=== PATIENT | female | born 1940 | race Caucasian/White ===

== ENCOUNTER 2021-09-04 21:13 | Inpatient (IN) | payer MEDICARE ==
[2021-09-04] MEDS ORDERED: hydrALAZINE 20 MG/ML VIAL ONE (21:42)
[2021-09-04] MEDS ORDERED: Nitroglycerin 2% Ointment 1 INCH/1 GM Packet ONE (21:42)
[2021-09-04] MEDS ORDERED: Nitroglycerin 0.4 MG TAB 1 EACH ONE (21:42)
[2021-09-04 21:47] LABS: #Eosinphils 0.5 thou/uL (0.0-0.7); #Lymphocytes 1.9 thou/uL (1.20-3.40); #Monocytes 0.8 thou/uL (0.11-0.59); %Basophils 0.1 % (0.0-1.0); %Eosinophils 3.1 % (0.0-10.0); %Lymphocytes 11.5 % (21.0-51.0); %Monocytes 4.9 % (0.0-10.0); %Neutrophils 80.4 % (42.0-75.0); Hemoglobin 11.6 g/dL (12.0-16.0); Mean Corpuscular HGB CONC 32.3 g/dL (32.0-36.0); Mean Corpuscular Hemoglobin 31.9 pg (27.0-31.0); Mean Corpuscular Volume 98.6 fL (78.0-98.0); Mean Platelet Volume 8.9 fL (7.4-10.4); Platelet Count 243 thou/uL (130-400); RBC Distribution Width 14.4 % (11.5-14.5); Red Blood Cell (RBC) Count 3.65 mill/uL (4.20-5.40); White Blood Cell (WBC) Count 16.1 thou/uL (4.8-10.8)
[2021-09-04 22:10] LABS: ALT (SGPT) 13 U/L (8-55); AST (SGOT) 15 U/L (5-34); Albumin 4.4 g/dL (3.4-4.8); Alkaline Phosphatase 109 U/L (40-110); Anion Gap 20 mmol/L (10-20); BUN (Urea Nitrogen) 59 mg/dL (9.8-20.1); Bilirubin, Total 0.5 mg/dL (0.2-1.2); Calc. Creatinine Clearance 0 mL/min (70-130); Calcium 9.7 mg/dL (7.8-10.44); Carbon Dioxide 21 mmol/L (23-31); Chloride 104 mmol/L (98-107); Globulin 3.6 g/dL (2.4-3.5); Glucose 171 mg/dL (83-110); Potassium 4.7 mmol/L (3.5-5.1); Sodium 140 mmol/L (136-145)
[2021-09-04 22:30] LABS: CKMB 1.9 ng/mL (0-6.6)
[2021-09-05] MEDS ORDERED: Ondansetron ODT 4 MG TAB PO PRN (00:09)
[2021-09-05] MEDS ORDERED: Ondansetron PF 4 MG/2 ML Vial IVP PRN (00:09)
[2021-09-05] MEDS ORDERED: Acetaminophen 650 MG Suppository PR PRN (00:09)
[2021-09-05] MEDS ORDERED: Piperacillin/Tazobactam 3.375 GM in Sodium Chloride 0.9% 100 ML IVPB SCH ×2 (00:15→01:00)
[2021-09-05 01:27] LABS: Troponin I 0.102 ng/mL (< 0.028)
[2021-09-05] MEDS ORDERED: hydrALAZINE 20 MG/ML VIAL SLOW IVP PRN (02:39)
[2021-09-05] MEDS ORDERED: Nitroglycerin 0.4 MG TAB (25 Tab Bottle) SL PRN (02:39)
[2021-09-05] MEDS ORDERED: NIFEdipine XL 90 MG TAB PO SCH ×2 (02:45→21:00)
[2021-09-05] MEDS: Acetaminophen 325 MG TAB PO PRN (04:06)
[2021-09-05 05:33] LABS: #Basophils 0.1 thou/uL (0.0-0.2); #Eosinphils 0.1 thou/uL (0.0-0.7); #Lymphocytes 1.3 thou/uL (1.20-3.40); #Monocytes 0.7 thou/uL (0.11-0.59); %Basophils 0.6 % (0.0-1.0); %Lymphocytes 11.9 % (21.0-51.0); %Monocytes 6.2 % (0.0-10.0); %Neutrophils 80.3 % (42.0-75.0); Hemoglobin 10.1 g/dL (12.0-16.0); Mean Corpuscular Hemoglobin 31.6 pg (27.0-31.0); Mean Corpuscular Volume 98.7 fL (78.0-98.0); Mean Platelet Volume 8.9 fL (7.4-10.4); Platelet Count 188 thou/uL (130-400); RBC Distribution Width 14.3 % (11.5-14.5); White Blood Cell (WBC) Count 11.2 thou/uL (4.8-10.8)
[2021-09-05 05:42] LABS: Anion Gap 18 mmol/L (10-20); BUN (Urea Nitrogen) 63 mg/dL (9.8-20.1); Calc. Creatinine Clearance 8 mL/min (70-130); Calcium 9.3 mg/dL (7.8-10.44); Carbon Dioxide 22 mmol/L (23-31); Chloride 106 mmol/L (98-107); Glucose 132 mg/dL (83-110); Potassium 4.7 mmol/L (3.5-5.1); Sodium 141 mmol/L (136-145)
[2021-09-05 05:47] LABS: Troponin I 0.188 ng/mL (< 0.028)
[2021-09-05 05:52] LABS: Bilirubin Negative (Negative); Blood, Urine Negative (Negative); Clarity Clear (Clear); Glucose, Urine (Dipstick) 200 mg/dL (Negative); Ketone, Urine Negative (Negative); Leukocyte 75 Leu/uL (Negative); Nitrite Negative (Negative); Protein, Urine (Dipstick) 300 mg/dL (Neg-Trace); RBC/HPF 0-3 HPF (0-3); Specific Gravity, Urine 1.015 (1.002-1.036); Squamous Epithelial 0-3 HPF (0-3); Urobilinogen Normal mg/dL (Less than 2); pH, Urine 7.5 (5.0-9.0)
[2021-09-05 05:53] LABS: Bacteria/HPF Rare-Few HPF (None Seen)
[2021-09-05 05:54] LABS: Urine Culture Reflex Yes Yes
[2021-09-05] MEDS ORDERED: Heparin 5,000 UNITS/ML VIAL SC SCH (09:00)
[2021-09-05] MEDS: Sevelamer Carbonate 800 MG TAB PO SCH ×3 (09:45→16:32)
[2021-09-05] MEDS: Carvedilol 25 MG TAB PO SCH ×2 (13:40→16:32)
[2021-09-05] MEDS: Amiodarone 200 MG TAB PO SCH (13:40)
[2021-09-05] MEDS: Apixaban 2.5 MG TAB PO SCH ×2 (13:41→20:30)
[2021-09-05] MEDS ORDERED: Heparin 10,000 UNITS/ 10 ML VIAL ONE (13:49)
[2021-09-05] MEDS: Piperacillin/Tazobactam 3.375 GM in Sodium Chloride 0.9% 100 ML IVPB SCH (14:06)
[2021-09-05 21:11] LABS: SARS-CoV-2 PCR by NAA Not Detected (NotDetected)
[2021-09-06] MEDS: Piperacillin/Tazobactam 3.375 GM in Sodium Chloride 0.9% 100 ML IVPB SCH (01:14)
[2021-09-06 04:59] LABS: #Eosinphils 0.4 thou/uL (0.0-0.7); #Lymphocytes 1.7 thou/uL (1.20-3.40); #Monocytes 0.7 thou/uL (0.11-0.59); #Neutrophils 4.6 thou/uL (1.40-6.50); %Basophils 0.5 % (0.0-1.0); %Eosinophils 5.5 % (0.0-10.0); %Lymphocytes 23.1 % (21.0-51.0); %Monocytes 9.2 % (0.0-10.0); %Neutrophils 61.7 % (42.0-75.0); Hemoglobin 9.6 g/dL (12.0-16.0); Mean Corpuscular HGB CONC 33.8 g/dL (32.0-36.0); Mean Corpuscular Hemoglobin 33.6 pg (27.0-31.0); Mean Corpuscular Volume 99.4 fL (78.0-98.0); Mean Platelet Volume 8.8 fL (7.4-10.4); Platelet Count 169 thou/uL (130-400); RBC Distribution Width 14.3 % (11.5-14.5); Red Blood Cell (RBC) Count 2.87 mill/uL (4.20-5.40); White Blood Cell (WBC) Count 7.4 thou/uL (4.8-10.8)
[2021-09-06 05:21] LABS: Anion Gap 15 mmol/L (10-20); BUN (Urea Nitrogen) 35 mg/dL (9.8-20.1); Calc. Creatinine Clearance 10 mL/min (70-130); Calcium 8.7 mg/dL (7.8-10.44); Carbon Dioxide 28 mmol/L (23-31); Chloride 101 mmol/L (98-107); Glucose 107 mg/dL (83-110); Potassium 4.1 mmol/L (3.5-5.1); Sodium 140 mmol/L (136-145)
[2021-09-06] MEDS ORDERED: EPOETIN ALFA-EPBX (ESRD) 10,000 UNIT/ML VIAL SC SCH (08:00)
[2021-09-06] MEDS: Amiodarone 200 MG TAB PO SCH ×2 (08:39→20:57)
[2021-09-06] MEDS: Apixaban 2.5 MG TAB PO SCH ×2 (08:39→20:57)
[2021-09-06] MEDS: Sevelamer Carbonate 800 MG TAB PO SCH ×3 (08:39→17:00)
[2021-09-06] MEDS ORDERED: Heparin 10,000 UNITS/ 10 ML VIAL ONE (09:40)
[2021-09-06] MEDS: cefTRIAXone\\ROCEPHIN 1 GM in Sodium Chloride 0.9% 100 ML IVPB SCH (13:05)
[2021-09-06] MEDS: Carvedilol 25 MG TAB PO SCH (17:01)
[2021-09-06] MEDS: NIFEdipine XL 90 MG TAB PO SCH (20:56)
[2021-09-06] MEDS: Doxycycline 100 MG CAP PO SCH (20:58)
[2021-09-07] MEDS: Doxycycline 100 MG CAP PO SCH ×2 (09:12→20:18)
[2021-09-07] MEDS: Amiodarone 200 MG TAB PO SCH ×2 (09:12→20:18)
[2021-09-07] MEDS: Carvedilol 25 MG TAB PO SCH ×2 (09:12→17:56)
[2021-09-07] MEDS: Sevelamer Carbonate 800 MG TAB PO SCH ×3 (09:13→17:56)
[2021-09-07] MEDS ORDERED: ceFAZolin 2 GM/Dextrose 50 ML 2 GM in Premix Bag 1 BAG IVPB SCH (09:30)
[2021-09-07] MEDS: cefTRIAXone\\ROCEPHIN 1 GM in Sodium Chloride 0.9% 100 ML IVPB SCH (12:51)
[2021-09-07 14:47] VITALS: BMI 23.8
[2021-09-07] MEDS: NIFEdipine XL 90 MG TAB PO SCH (20:17)
[2021-09-08 04:12] LABS: #Eosinphils 0.4 thou/uL (0.0-0.7); #Lymphocytes 2.2 thou/uL (1.20-3.40); #Monocytes 0.8 thou/uL (0.11-0.59); #Neutrophils 4.3 thou/uL (1.40-6.50); %Basophils 0.6 % (0.0-1.0); %Eosinophils 5.6 % (0.0-10.0); %Lymphocytes 28.4 % (21.0-51.0); %Monocytes 10.2 % (0.0-10.0); %Neutrophils 55.2 % (42.0-75.0); Hemoglobin 11.2 g/dL (12.0-16.0); Mean Corpuscular HGB CONC 32.2 g/dL (32.0-36.0); Mean Corpuscular Hemoglobin 31.8 pg (27.0-31.0); Mean Corpuscular Volume 98.7 fL (78.0-98.0); Mean Platelet Volume 8.5 fL (7.4-10.4); Platelet Count 191 thou/uL (130-400); RBC Distribution Width 14.2 % (11.5-14.5); Red Blood Cell (RBC) Count 3.53 mill/uL (4.20-5.40); White Blood Cell (WBC) Count 7.8 thou/uL (4.8-10.8)
[2021-09-08 04:35] LABS: Anion Gap 16 mmol/L (10-20); BUN (Urea Nitrogen) 44 mg/dL (9.8-20.1); Calc. Creatinine Clearance 8 mL/min (70-130); Calcium 9.3 mg/dL (7.8-10.44); Carbon Dioxide 24 mmol/L (23-31); Chloride 99 mmol/L (98-107); Glucose 99 mg/dL (83-110); Potassium 3.6 mmol/L (3.5-5.1); Sodium 135 mmol/L (136-145)
[2021-09-08] MEDS: Carvedilol 25 MG TAB PO SCH ×2 (08:32→18:50)
[2021-09-08] MEDS: Sevelamer Carbonate 800 MG TAB PO SCH ×3 (08:32→18:50)
[2021-09-08] MEDS: Amiodarone 200 MG TAB PO SCH ×2 (08:33→23:44)
[2021-09-08] MEDS: Doxycycline 100 MG CAP PO SCH ×2 (08:35→23:43)
[2021-09-08 08:49] LABS: HBSAB Concentration Less than 8.00 mIU/mL; HBSAg Index 0.25 S/CO (0-0.99); Hep B Surf AB Non-Reactive (NonReactive); Hep B Surf Ag Non-Reactive S/CO (NonReactive)
[2021-09-08] MEDS ORDERED: Heparin 10,000 UNITS/ 10 ML VIAL ONE ×2 (10:35→13:47)
[2021-09-08] MEDS ORDERED: Lidocaine 1% w/Epinephrine 1:100K 20 ML VIAL ONE (13:47)
[2021-09-08] MEDS ORDERED: Bupivacaine 0.25% 10 ML VIAL ONE (13:47)
[2021-09-08] MEDS ORDERED: Heparin 5,000 UNITS/ML VIAL ONE (13:47)
[2021-09-08] MEDS ORDERED: fentaNYL Citrate/PF 100 MCG/2 ML SYRINGE ONE (13:48)
[2021-09-08] MEDS ORDERED: Protamine Sulfate 50 MG/5 ML VIAL ONE (13:49)
[2021-09-08] MEDS ORDERED: Succinylcholine 200 MG/10 ml SYRINGE FS ONE (14:33)
[2021-09-08] MEDS ORDERED: Lidocaine 1% PF 5 ML VIAL ONE (14:33)
[2021-09-08] MEDS ORDERED: Rocuronium Bromide 10 MG/ML (10ML VIAL) ONE (14:33)
[2021-09-08] MEDS ORDERED: Ondansetron PF 4 MG/2 ML Vial ONE (14:33)
[2021-09-08] MEDS ORDERED: ePHEDrine 50 MG/ML VIAL ONE (14:33)
[2021-09-08] MEDS ORDERED: PROPOFOL 200 MG/20 ML VIAL ONE (14:33)
[2021-09-08] MEDS ORDERED: traMADol HCl 50 MG TAB PO PRN (14:38)
[2021-09-08] MEDS ORDERED: Ondansetron HCl/PF 4 MG/2 ML Vial IVP PRN (14:55)
[2021-09-08] MEDS ORDERED: Promethazine HCl 25 MG/ML VIAL IM PRN (14:55)
[2021-09-08] MEDS ORDERED: Promethazine HCl 25 MG/ML VIAL IVPB PRN (14:55)
[2021-09-08] MEDS ORDERED: Heparin 1,000 UNITS/ML VIAL CATH SCH (17:00)
[2021-09-08] MEDS: Cefdinir 300 MG CAP PO SCH (18:52)
[2021-09-08] MEDS: cefTRIAXone\\ROCEPHIN 1 GM in Sodium Chloride 0.9% 100 ML IVPB SCH (18:54)
[2021-09-08] MEDS: Acetaminophen 325 MG TAB PO PRN (19:41)
[2021-09-08] MEDS: NIFEdipine XL 90 MG TAB PO SCH (23:43)
[2021-09-09] MEDS: Acetaminophen 325 MG TAB PO PRN (01:24)
[2021-09-09 04:33] LABS: #Eosinphils 0.1 thou/uL (0.0-0.7); #Monocytes 0.6 thou/uL (0.11-0.59); %Basophils 0.3 % (0.0-1.0); %Eosinophils 1.5 % (0.0-10.0); %Lymphocytes 10.7 % (21.0-51.0); %Monocytes 6.3 % (0.0-10.0); %Neutrophils 81.3 % (42.0-75.0); Hemoglobin 11.2 g/dL (12.0-16.0); Mean Corpuscular HGB CONC 32.6 g/dL (32.0-36.0); Mean Corpuscular Volume 98.2 fL (78.0-98.0); Mean Platelet Volume 8.3 fL (7.4-10.4); Platelet Count 193 thou/uL (130-400); RBC Distribution Width 14.5 % (11.5-14.5); Red Blood Cell (RBC) Count 3.51 mill/uL (4.20-5.40); White Blood Cell (WBC) Count 9.8 thou/uL (4.8-10.8)
[2021-09-09 04:59] LABS: Anion Gap 17 mmol/L (10-20); BUN (Urea Nitrogen) 21 mg/dL (9.8-20.1); Calc. Creatinine Clearance 12 mL/min (70-130); Calcium 9.1 mg/dL (7.8-10.44); Carbon Dioxide 23 mmol/L (23-31); Chloride 98 mmol/L (98-107); Glucose 132 mg/dL (83-110); Sodium 134 mmol/L (136-145)
[2021-09-09] MEDS: Carvedilol 25 MG TAB PO SCH ×2 (08:13→17:17)
[2021-09-09] MEDS: Doxycycline 100 MG CAP PO SCH ×2 (08:13→20:38)
[2021-09-09] MEDS: Sevelamer Carbonate 800 MG TAB PO SCH ×3 (08:13→17:17)
[2021-09-09] MEDS: Amiodarone 200 MG TAB PO SCH ×2 (08:13→20:38)
[2021-09-09] MEDS: NIFEdipine XL 90 MG TAB PO SCH (20:38)
[2021-09-10] MEDS: Acetaminophen 325 MG TAB PO PRN (00:11)
[2021-09-10 04:41] LABS: #Eosinphils 0.5 thou/uL (0.0-0.7); #Lymphocytes 2.3 thou/uL (1.20-3.40); #Monocytes 0.9 thou/uL (0.11-0.59); #Neutrophils 5.8 thou/uL (1.40-6.50); %Basophils 0.4 % (0.0-1.0); %Eosinophils 5.2 % (0.0-10.0); %Lymphocytes 24.1 % (21.0-51.0); %Monocytes 9.5 % (0.0-10.0); %Neutrophils 60.8 % (42.0-75.0); Hemoglobin 11.1 g/dL (12.0-16.0); Mean Corpuscular HGB CONC 32.8 g/dL (32.0-36.0); Mean Corpuscular Hemoglobin 31.9 pg (27.0-31.0); Mean Corpuscular Volume 97.4 fL (78.0-98.0); Mean Platelet Volume 8.3 fL (7.4-10.4); Platelet Count 211 thou/uL (130-400); RBC Distribution Width 14.2 % (11.5-14.5); Red Blood Cell (RBC) Count 3.49 mill/uL (4.20-5.40); White Blood Cell (WBC) Count 9.5 thou/uL (4.8-10.8)
[2021-09-10 05:08] LABS: Anion Gap 18 mmol/L (10-20); BUN (Urea Nitrogen) 34 mg/dL (9.8-20.1); Calc. Creatinine Clearance 8 mL/min (70-130); Calcium 9.5 mg/dL (7.8-10.44); Carbon Dioxide 23 mmol/L (23-31); Chloride 96 mmol/L (98-107); Glucose 110 mg/dL (83-110); Potassium 4.2 mmol/L (3.5-5.1); Sodium 133 mmol/L (136-145)
[2021-09-10] MEDS: Carvedilol 25 MG TAB PO SCH ×2 (08:36→17:56)
[2021-09-10] MEDS: Sevelamer Carbonate 800 MG TAB PO SCH ×3 (08:36→17:56)
[2021-09-10] MEDS: Amiodarone 200 MG TAB PO SCH ×2 (08:36→21:30)
[2021-09-10] MEDS: Doxycycline 100 MG CAP PO SCH ×2 (08:36→21:30)
[2021-09-10] MEDS: Cefdinir 300 MG CAP PO SCH (17:56)
[2021-09-10] MEDS: Apixaban 2.5 MG TAB PO SCH (21:30)
[2021-09-10] MEDS: NIFEdipine XL 90 MG TAB PO SCH (21:30)
[2021-09-11 04:21] LABS: #Basophils 0.1 thou/uL (0.0-0.2); #Eosinphils 0.5 thou/uL (0.0-0.7); #Monocytes 0.8 thou/uL (0.11-0.59); #Neutrophils 4.6 thou/uL (1.40-6.50); %Basophils 0.8 % (0.0-1.0); %Lymphocytes 24.7 % (21.0-51.0); %Monocytes 10.3 % (0.0-10.0); %Neutrophils 58.3 % (42.0-75.0); Hemoglobin 11.4 g/dL (12.0-16.0); Mean Corpuscular HGB CONC 32.4 g/dL (32.0-36.0); Mean Corpuscular Hemoglobin 31.7 pg (27.0-31.0); Mean Corpuscular Volume 98.1 fL (78.0-98.0); Mean Platelet Volume 8.3 fL (7.4-10.4); Platelet Count 195 thou/uL (130-400); RBC Distribution Width 14.3 % (11.5-14.5); Red Blood Cell (RBC) Count 3.59 mill/uL (4.20-5.40); White Blood Cell (WBC) Count 7.9 thou/uL (4.8-10.8)
[2021-09-11 04:51] LABS: Anion Gap 19 mmol/L (10-20); BUN (Urea Nitrogen) 51 mg/dL (9.8-20.1); Calc. Creatinine Clearance 7 mL/min (70-130); Calcium 9.3 mg/dL (7.8-10.44); Carbon Dioxide 22 mmol/L (23-31); Chloride 97 mmol/L (98-107); Glucose 110 mg/dL (83-110); Sodium 134 mmol/L (136-145)
[2021-09-11] MEDS: Carvedilol 25 MG TAB PO SCH (08:05)
[2021-09-11] MEDS: Amiodarone 200 MG TAB PO SCH (08:24)
[2021-09-11] MEDS: Apixaban 2.5 MG TAB PO SCH (08:24)
[2021-09-11] MEDS: Doxycycline 100 MG CAP PO SCH (08:24)
[2021-09-11] MEDS: Sevelamer Carbonate 800 MG TAB PO SCH ×2 (08:24→13:40)
[2021-09-11] MEDS ORDERED: Heparin 10,000 UNITS/ 10 ML VIAL ONE (09:03)
[2021-09-11 13:38] VITALS: BP 132/62; TEMP 97.9
== END 2021-09-11 15:00 | disposition home or self-care (01) | DRG 853 ==
LOC: ERS 21:13 → 2NO 23:06 → OBSVTOIN 09-06 09:40
PROVIDERS: ADMIT Internal Medicine; ATTEND Internal Medicine
PROC: 5A1D70Z Performance of Urinary Filtration, Intermittent, Less than 6 Hours Per Day (ICD-10-PCS; 2021-09-05)
PROC: 3E03329 Introduction of Other Anti-infective into Peripheral Vein, Percutaneous Approach (ICD-10-PCS; 2021-09-06)
PROC: 031B0ZF Bypass Right Radial Artery to Lower Arm Vein, Open Approach (ICD-10-PCS; principal; 2021-09-08)
PROC: 0WHG43Z Insertion of Infusion Device into Peritoneal Cavity, Percutaneous Endoscopic Approach (ICD-10-PCS; 2021-09-08)
PROC: 0DQU4ZZ Repair Omentum, Percutaneous Endoscopic Approach (ICD-10-PCS; 2021-09-08)
DX: A41.9 Sepsis, unspecified organism (principal); N18.6 End stage renal disease; J96.01 Acute respiratory failure with hypoxia; J18.9 Pneumonia, unspecified organism; I12.0 Hypertensive chronic kidney disease with stage 5 chronic kidney disease or end stage renal disease; J90 Pleural effusion, not elsewhere classified; E87.1 Hypo-osmolality and hyponatremia; N39.0 Urinary tract infection, site not specified; E87.70 Fluid overload, unspecified; Z20.822 Contact with and (suspected) exposure to COVID-19; I16.0 Hypertensive urgency; D63.1 Anemia in chronic kidney disease; R77.8 Other specified abnormalities of plasma proteins; Z95.0 Presence of cardiac pacemaker; Z99.2 Dependence on renal dialysis; Z79.899 Other long term (current) drug therapy; Z79.01 Long term (current) use of anticoagulants; Z79.82 Long term (current) use of aspirin; Z80.0 Family history of malignant neoplasm of digestive organs
CPT/HCPCS: 36415; 71045; 80048; 80053; 81001; 82553; 83605; 83880; 84145; 84484; 85025; 86706; 87040; 87086; 87340; 90935; 93005; 93010; 93970; 94760; 96372; 96374; 96375; 96376; C1713; C1776; G0257; G0378; J0360; J0696; J1642; J1644; J2405; J2543; J2704; J2720; J3490; Q0162; Q5105; S0020; U0003; U0005

== ENCOUNTER 2021-11-24 12:49 | Outpatient (CLI) | payer MEDICARE | END 2021-11-24 12:50 | disposition home or self-care (01) | LOC: BICRAD 12:49 | PROVIDERS: ATTEND Internal Medicine Nephrology | DX: R10.30 Lower abdominal pain, unspecified (principal) | CPT/HCPCS: 74018 ==

== ENCOUNTER 2021-12-07 12:38 | Outpatient (CLI) | payer MEDICARE | END 2021-12-07 12:39 | disposition home or self-care (01) | LOC: LABBT 12:38 | PROVIDERS: ATTEND Specialist | DX: Z01.818 Encounter for other preprocedural examination (principal); T85.611A Breakdown (mechanical) of intraperitoneal dialysis catheter, initial encounter; T82.590A Other mechanical complication of surgically created arteriovenous fistula, initial encounter; Z20.822 Contact with and (suspected) exposure to COVID-19 | CPT/HCPCS: 87811; 93005; 93010 ==

== ENCOUNTER 2021-12-12 10:11 | Day surgery (SDC) | payer MEDICARE ==
[2021-12-11 10:09] VITALS: BMI 26.2
[2021-12-12] MEDS ORDERED: Ondansetron PF 4 MG/2 ML Vial ONE ×2 (10:54→12:03)
[2021-12-12 11:06] LABS: #Basophils 0.1 thou/uL (0.0-0.2); #Lymphocytes 1.6 thou/uL (1.20-3.40); #Monocytes 0.7 thou/uL (0.11-0.59); #Neutrophils 7.1 thou/uL (1.40-6.50); %Basophils 0.4 % (0.0-1.0); %Monocytes 5.4 % (0.0-10.0); %Neutrophils 57.2 % (42.0-75.0); Hemoglobin 10.4 g/dL (12.0-16.0); Mean Corpuscular HGB CONC 31.7 g/dL (32.0-36.0); Mean Corpuscular Hemoglobin 32.2 pg (27.0-31.0); Platelet Count 251 thou/uL (130-400); RBC Distribution Width 13.9 % (11.5-14.5); Red Blood Cell (RBC) Count 3.21 mill/uL (4.20-5.40); White Blood Cell (WBC) Count 12.4 thou/uL (4.8-10.8)
[2021-12-12] MEDS ORDERED: Heparin 5,000 UNITS/ML VIAL ONE (11:09)
[2021-12-12] MEDS ORDERED: Heparin 10,000 UNITS/ 10 ML VIAL ONE (11:09)
[2021-12-12] MEDS ORDERED: Lidocaine 1% w/Epinephrine 1:200K 30 ML VIAL ONE (11:09)
[2021-12-12] MEDS ORDERED: Protamine Sulfate 50 MG/5 ML VIAL ONE (11:09)
[2021-12-12] MEDS ORDERED: Bupivacaine PF 0.5% 30 ML VIAL ONE (11:09)
[2021-12-12 11:26] LABS: Anion Gap 18 mmol/L (10-20); BUN (Urea Nitrogen) 37 mg/dL (9.8-20.1); Calc. Creatinine Clearance 9 mL/min (70-130); Calcium 9.5 mg/dL (7.8-10.44); Carbon Dioxide 27 mmol/L (23-31); Chloride 98 mmol/L (98-107); Estimated GFR 7; Glucose 130 mg/dL (83-110); Potassium 4.5 mmol/L (3.5-5.1); Sodium 138 mmol/L (136-145)
[2021-12-12] MEDS ORDERED: Sodium Chloride 0.9% 100 ML ONE (11:56)
[2021-12-12] MEDS ORDERED: CEFAZOLIN 2 GM VIAL ONE (11:56)
[2021-12-12] MEDS ORDERED: PROPOFOL 200 MG/20 ML VIAL ONE (12:03)
[2021-12-12] MEDS ORDERED: Lidocaine 1% PF 5 ML VIAL ONE (12:03)
[2021-12-12] MEDS ORDERED: Dexamethasone 20 MG/5 ML VIAL ONE (12:03)
[2021-12-12] MEDS ORDERED: Rocuronium Bromide 10 MG/ML (10ML VIAL) ONE (12:03)
[2021-12-12] MEDS ORDERED: ePHEDrine 50 MG/ML VIAL ONE (12:03)
[2021-12-12] MEDS ORDERED: Phenylephrine 10 MG/ML VIAL ONE (12:03)
[2021-12-12] MEDS ORDERED: fentaNYL Citrate/PF 100 MCG/2 ML SYRINGE ONE (12:04)
[2021-12-12] MEDS ORDERED: SUGAMMADEX SODIUM 200 MG/2 ML VIAL ONE (12:04)
[2021-12-12] MEDS ORDERED: HYDROcodone/Acetaminophen 5/325 mg Tablet ONE (15:30)
[2021-12-12] MEDS ORDERED: Morphine 2 MG/ML VIAL ONE (16:20)
[2021-12-12] MEDS ORDERED: Heparin 1,000 UNITS/ML VIAL ONE (17:09)
== END 2021-12-12 17:25 | disposition home or self-care (01) ==
LOC: SDC 10:11
PROVIDERS: ATTEND Specialist
PROC: 0WWG43Z Revision of Infusion Device in Peritoneal Cavity, Percutaneous Endoscopic Approach (ICD-10-PCS; principal; 2021-12-12)
PROC: 05SB0ZZ Reposition Right Basilic Vein, Open Approach (ICD-10-PCS; 2021-12-12)
DX: T85.611A Breakdown (mechanical) of intraperitoneal dialysis catheter, initial encounter (principal); I12.0 Hypertensive chronic kidney disease with stage 5 chronic kidney disease or end stage renal disease; N18.6 End stage renal disease; T82.590A Other mechanical complication of surgically created arteriovenous fistula, initial encounter; Z79.01 Long term (current) use of anticoagulants; Z79.82 Long term (current) use of aspirin; Z79.899 Other long term (current) drug therapy; Z95.0 Presence of cardiac pacemaker; Z99.2 Dependence on renal dialysis
CPT/HCPCS: 36819; 49325; 80048; 85025; J2270; C1776; J0690; J1100; J1644; J2370; J2405; J2704; J2720; J3490; S0020

== ENCOUNTER 2022-02-26 09:10 | Outpatient (CLI) | payer MEDICARE | END 2022-02-26 09:11 | disposition home or self-care (01) | LOC: NM 09:10 | PROVIDERS: ATTEND Internal Medicine Hematology & Oncology | DX: C64.1 Malignant neoplasm of right kidney, except renal pelvis (principal) | CPT/HCPCS: 78306; A9503 ==

== ENCOUNTER 2022-07-02 18:09 | Emergency (ER) | payer MEDICARE ==
[2022-07-02 18:59] LABS: Hemoglobin 11.3 g/dL (12.0-16.0); Mean Corpuscular HGB CONC 33.2 g/dL (32.0-36.0); Mean Corpuscular Hemoglobin 33.9 pg (27.0-31.0); Mean Platelet Volume 8.7 fL (7.4-10.4); Platelet Count 158 10x3/uL (130-400); RBC Distribution Width 13.7 % (11.5-14.5); Red Blood Cell (RBC) Count 3.33 mill/uL (4.20-5.40); White Blood Cell (WBC) Count 7.5 10x3/uL (4.8-10.8)
[2022-07-02 19:22] LABS: Band 3 % (5-11); Eosinophils 4 % (0-10); Lymphocytes 16 % (21-51); MDiff Complete? YES; Macrocytosis SLIGHT = 6-15 cells (100X) (0-5/hpf); Monocytes 2 % (0-10); Neutrophil 75 % (42-75); Platelet Clumps SLIGHT; Platelet Morphology Comment Appears Adequate; Polychromasia SLIGHT = 2-3 cells (100X) (0-2/hpf)
[2022-07-02 19:28] LABS: ALT (SGPT) 9 U/L (8-55); AST (SGOT) 20 U/L (5-34); Albumin 4.3 g/dL (3.4-4.8); Alkaline Phosphatase 147 U/L (40-110); Anion Gap 23 mmol/L (10-20); BUN (Urea Nitrogen) 34 mg/dL (9.8-20.1); Bilirubin, Total 0.6 mg/dL (0.2-1.2); Calc. Creatinine Clearance 0 mL/min (70-130); Calcium 10.9 mg/dL (7.8-10.44); Carbon Dioxide 19 mmol/L (23-31); Chloride 98 mmol/L (98-107); Estimated GFR 7; Globulin 4.2 g/dL (2.4-3.5); Glucose 112 mg/dL (83-110); Potassium 4.7 mmol/L (3.5-5.1); Protein, Total 8.5 g/dL (5.8-8.1); Sodium 135 mmol/L (136-145)
[2022-07-02 19:44] LABS: CKMB 2.3 ng/mL (0-6.6)
[2022-07-02] MEDS ORDERED: Magnesium 2 GM/50 ML BAG (IN WATER) ONE (20:04)
[2022-07-02] MEDS ORDERED: Metoprolol Tartrate 5 MG/5 ML VIAL ONE ×2 (20:04→21:18)
== END 2022-07-02 22:10 | disposition home or self-care (01) ==
LOC: ERS 18:09
DX: I48.20 Chronic atrial fibrillation, unspecified (principal); I12.9 Hypertensive chronic kidney disease with stage 1 through stage 4 chronic kidney disease, or unspecified chronic kidney disease; N18.4 Chronic kidney disease, stage 4 (severe)
CPT/HCPCS: 36415; 71045; 80053; 82553; 83880; 84484; 85025; 93005; 96374; 96375; 96376; J3475

== ENCOUNTER 2022-07-15 07:50 | Inpatient (IN) | payer MEDICARE ==
[2022-07-15] MEDS ORDERED: Heparin 10,000 UNITS/ 10 ML VIAL ONE (08:44)
[2022-07-15 08:53] LABS: Hemoglobin 12.2 g/dL (12.0-16.0); Mean Corpuscular Hemoglobin 33.7 pg (27.0-31.0); Mean Platelet Volume 8.9 fL (7.4-10.4); Platelet Count 270 10x3/uL (130-400); RBC Distribution Width 14.4 % (11.5-14.5); Red Blood Cell (RBC) Count 3.61 mill/uL (4.20-5.40); White Blood Cell (WBC) Count 12.9 10x3/uL (4.8-10.8)
[2022-07-15 09:01] LABS: ALT (SGPT) 10 U/L (8-55); AST (SGOT) 18 U/L (5-34); Albumin 4.5 g/dL (3.4-4.8); Alkaline Phosphatase 161 U/L (40-110); Anion Gap 25 mmol/L (10-20); BUN (Urea Nitrogen) 27 mg/dL (9.8-20.1); Bilirubin, Total 0.8 mg/dL (0.2-1.2); Calc. Creatinine Clearance 0 mL/min (70-130); Calcium 10.8 mg/dL (7.8-10.44); Carbon Dioxide 19 mmol/L (23-31); Chloride 99 mmol/L (98-107); Estimated GFR 6; Globulin 3.5 g/dL (2.4-3.5); Glucose 147 mg/dL (83-110); Potassium 4.3 mmol/L (3.5-5.1); Sodium 139 mmol/L (136-145)
[2022-07-15 09:34] LABS: #Basophils 0.1 thou/uL (0.0-0.2); #Eosinphils 0.3 thou/uL (0.0-0.7); #Lymphocytes 1.3 thou/uL (1.20-3.40); #Monocytes 0.7 thou/uL (0.11-0.59); #Neutrophils 10.6 thou/uL (1.40-6.50); %Basophils 0.5 % (0.0-1.0); %Eosinophils 1.9 % (0.0-10.0); %Lymphocytes 9.7 % (21.0-51.0); %Monocytes 5.7 % (0.0-10.0); %Neutrophils 82.2 % (42.0-75.0); Anisocytosis SLIGHT = 6-15 cells (100X) (0-5/hpf); MDiff Complete? YES; Macrocytosis MODERATE=16-30 cells (100X) (0-5/hpf); Platelet Morphology Comment Appears Adequate; Polychromasia SLIGHT = 2-3 cells (100X) (0-2/hpf); Vacuoles SLIGHT
[2022-07-15] MEDS ORDERED: Cefepime 2 GM VIAL ONE (10:50)
[2022-07-15] MEDS ORDERED: Vancomycin 1.5 GRAM/300 ML BAG 1.5 GM in Premix Bag 1 BAG IVPB SCH (11:00)
[2022-07-15] MEDS ORDERED: Ondansetron PF 4 MG/2 ML Vial IVP PRN (11:15)
[2022-07-15 11:36] LABS: Bacteria/HPF None Seen HPF (None Seen); Bilirubin Negative (Negative); Blood, Urine Negative (Negative); Clarity Clear (Clear); Glucose, Urine (Dipstick) 150 mg/dL (Negative); Ketone, Urine Negative (Negative); Leukocyte Negative Leu/uL (Negative); Nitrite Negative (Negative); Protein, Urine (Dipstick) 300 mg/dL (Neg-Trace); RBC/HPF None Seen HPF (0-3); Specific Gravity, Urine 1.013 (1.002-1.036); Squamous Epithelial None Seen HPF (0-3); Urobilinogen Normal mg/dL (Less than 2); WBC/HPF 0-3 HPF (0-3); pH, Urine 8.5 (5.0-9.0)
[2022-07-15 13:39] LABS: HBSAg Index 0.21 S/CO (0-0.99); Hep B Core Total Ab Non-Reactive (NonReactive); Hep B Core Total Index 0.07 S/CO (0-0.79); Hep B Surf Ag Non-Reactive S/CO (NonReactive); Hep C IgG Ab Non-Reactive (NonReactive); Hep C Index 0.07 S/CO (0-0.79)
[2022-07-15 13:43] LABS: HBSAB Concentration 765.39 mIU/mL; Hep B Surf AB Reactive (NonReactive)
[2022-07-15 18:39] LABS: SARS-CoV-2 NAA Rapid Test Not Detected (NotDetected)
[2022-07-15] MEDS: cefTRIAXone\\ROCEPHIN 1 GM in Sodium Chloride 0.9% 100 ML IVPB SCH (18:42)
[2022-07-15] MEDS: Atorvastatin Calcium 20 MG TAB PO SCH (20:36)
[2022-07-15] MEDS: Apixaban 2.5 MG TAB PO SCH (20:36)
[2022-07-15] MEDS: Carvedilol 25 MG TAB PO SCH (20:36)
[2022-07-16] MEDS ORDERED: Metoprolol Tartrate 5 MG/5 ML VIAL IVP SCH (01:22)
[2022-07-16] MEDS ORDERED: Amiodarone 200 MG TAB PO SCH ×2 (02:30→09:00)
[2022-07-16 05:13] LABS: #Eosinphils 0.2 thou/uL (0.0-0.7); #Lymphocytes 1.6 thou/uL (1.20-3.40); #Monocytes 0.8 thou/uL (0.11-0.59); #Neutrophils 4.9 thou/uL (1.40-6.50); %Basophils 0.5 % (0.0-1.0); %Eosinophils 3.1 % (0.0-10.0); %Lymphocytes 20.9 % (21.0-51.0); %Monocytes 10.1 % (0.0-10.0); %Neutrophils 65.5 % (42.0-75.0); Hemoglobin 11.4 g/dL (12.0-16.0); Mean Corpuscular Hemoglobin 34.2 pg (27.0-31.0); Platelet Count 244 10x3/uL (130-400); RBC Distribution Width 14.4 % (11.5-14.5); Red Blood Cell (RBC) Count 3.33 mill/uL (4.20-5.40); White Blood Cell (WBC) Count 7.6 10x3/uL (4.8-10.8)
[2022-07-16] MEDS: Acetaminophen 325 MG TAB PO PRN ×4 (08:00→22:53)
[2022-07-16] MEDS ORDERED: Heparin 10,000 UNITS/ 10 ML VIAL ONE (08:42)
[2022-07-16] MEDS ORDERED: traMADol HCl 50 MG TAB PO SCH (11:30)
[2022-07-16] MEDS: Apixaban 2.5 MG TAB PO SCH ×2 (12:51→20:04)
[2022-07-16] MEDS: Citalopram 10 MG TAB PO SCH (12:51)
[2022-07-16] MEDS: Carvedilol 25 MG TAB PO SCH ×2 (12:51→20:04)
[2022-07-16 16:45] VITALS: BMI 26.9
[2022-07-16] MEDS: cefTRIAXone\\ROCEPHIN 1 GM in Sodium Chloride 0.9% 100 ML IVPB SCH (17:44)
[2022-07-16] MEDS: Diltiazem 125 MG in Sodium Chloride 0.9% 100 ML IVPB SCH (20:03)
[2022-07-16] MEDS: Atorvastatin Calcium 20 MG TAB PO SCH (20:04)
[2022-07-16] MEDS: Amiodarone 200 MG TAB PO SCH (20:04)
[2022-07-17 05:41] LABS: #Basophils 0.1 thou/uL (0.0-0.2); #Eosinphils 0.3 thou/uL (0.0-0.7); #Monocytes 0.9 thou/uL (0.11-0.59); #Neutrophils 5.3 thou/uL (1.40-6.50); %Eosinophils 3.3 % (0.0-10.0); %Lymphocytes 23.2 % (21.0-51.0); %Monocytes 10.7 % (0.0-10.0); %Neutrophils 61.7 % (42.0-75.0); Hemoglobin 12.1 g/dL (12.0-16.0); Mean Corpuscular Hemoglobin 34.6 pg (27.0-31.0); Mean Platelet Volume 9.5 fL (7.4-10.4); Platelet Count 158 10x3/uL (130-400); RBC Distribution Width 14.6 % (11.5-14.5); Red Blood Cell (RBC) Count 3.49 mill/uL (4.20-5.40); White Blood Cell (WBC) Count 8.6 10x3/uL (4.8-10.8)
[2022-07-17 06:08] LABS: ALT (SGPT) 9 U/L (8-55); AST (SGOT) 15 U/L (5-34); Albumin 3.8 g/dL (3.4-4.8); Alkaline Phosphatase 126 U/L (40-110); Anion Gap 19 mmol/L (10-20); BUN (Urea Nitrogen) 21 mg/dL (9.8-20.1); Bilirubin, Total 0.4 mg/dL (0.2-1.2); Calc. Creatinine Clearance 11 mL/min (70-130); Calcium 9.9 mg/dL (7.8-10.44); Carbon Dioxide 24 mmol/L (23-31); Cardiac Risk 2.6 (Less than 4.5); Chloride 95 mmol/L (98-107); Cholesterol 129 mg/dl (< 200 Desired); Estimated GFR 8; Globulin 3.3 g/dL (2.4-3.5); Glucose 129 mg/dL (83-110); HDL Cholesterol 50 mg/dL (>60 Neg Risk); LDL Cholesterol, Calculated 59 mg/dL; Phosphorus 4.9 mg/dL (2.3-4.7); Potassium 3.6 mmol/L (3.5-5.1); Protein, Total 7.1 g/dL (5.8-8.1); Sodium 134 mmol/L (136-145); Triglycerides 99 mg/dL (Less than 150)
[2022-07-17] MEDS: Amiodarone 200 MG TAB PO SCH ×2 (09:03→21:32)
[2022-07-17] MEDS: Apixaban 2.5 MG TAB PO SCH ×2 (09:03→21:33)
[2022-07-17] MEDS: Citalopram 10 MG TAB PO SCH (09:04)
[2022-07-17] MEDS: Carvedilol 25 MG TAB PO SCH ×2 (09:04→21:32)
[2022-07-17] MEDS: Calcitriol 0.25 MCG CAP PO SCH (09:04)
[2022-07-17] MEDS: Diltiazem 125 MG in Sodium Chloride 0.9% 100 ML IVPB SCH ×2 (10:28→22:46)
[2022-07-17] MEDS ORDERED: Morphine 4 MG/ML VIAL SLOW IVP PRN (12:28)
[2022-07-17] MEDS ORDERED: HYDROcodone/Acetaminophen 5/325 mg Tablet PO PRN (12:28)
[2022-07-17] MEDS: Sevelamer Carbonate 800 MG TAB PO SCH ×2 (12:58→18:10)
[2022-07-17] MEDS: Ampicillin 2 GM in Sodium Chloride 0.9% 100 ML IVPB SCH (18:10)
[2022-07-17] MEDS: Atorvastatin Calcium 20 MG TAB PO SCH (21:32)
[2022-07-18] MEDS: Acetaminophen 325 MG TAB PO PRN (03:17)
[2022-07-18] MEDS: Ampicillin 2 GM in Sodium Chloride 0.9% 100 ML IVPB SCH ×2 (03:26→15:27)
[2022-07-18 05:07] LABS: #Basophils 0.1 thou/uL (0.0-0.2); #Eosinphils 0.4 thou/uL (0.0-0.7); #Lymphocytes 1.7 thou/uL (1.20-3.40); %Basophils 0.7 % (0.0-1.0); %Lymphocytes 18.7 % (21.0-51.0); %Monocytes 11.1 % (0.0-10.0); %Neutrophils 65.6 % (42.0-75.0); Mean Corpuscular HGB CONC 32.8 g/dL (32.0-36.0); Mean Corpuscular Hemoglobin 34.8 pg (27.0-31.0); Mean Platelet Volume 8.3 fL (7.4-10.4); Platelet Count 232 10x3/uL (130-400); RBC Distribution Width 14.5 % (11.5-14.5); Red Blood Cell (RBC) Count 3.16 mill/uL (4.20-5.40); White Blood Cell (WBC) Count 9.2 10x3/uL (4.8-10.8)
[2022-07-18 05:39] LABS: ALT (SGPT) 7 U/L (8-55); AST (SGOT) 13 U/L (5-34); Albumin 3.6 g/dL (3.4-4.8); Alkaline Phosphatase 124 U/L (40-110); Anion Gap 21 mmol/L (10-20); BUN (Urea Nitrogen) 33 mg/dL (9.8-20.1); Bilirubin, Total 0.4 mg/dL (0.2-1.2); Calc. Creatinine Clearance 8 mL/min (70-130); Calcium 9.5 mg/dL (7.8-10.44); Carbon Dioxide 20 mmol/L (23-31); Chloride 97 mmol/L (98-107); Estimated GFR 6; Globulin 3.1 g/dL (2.4-3.5); Glucose 125 mg/dL (83-110); Potassium 3.5 mmol/L (3.5-5.1); Protein, Total 6.7 g/dL (5.8-8.1); Sodium 134 mmol/L (136-145)
[2022-07-18] MEDS: Calcitriol 0.25 MCG CAP PO SCH (08:12)
[2022-07-18] MEDS: Sevelamer Carbonate 800 MG TAB PO SCH ×3 (08:12→17:06)
[2022-07-18] MEDS: Citalopram 10 MG TAB PO SCH (08:12)
[2022-07-18] MEDS: Carvedilol 25 MG TAB PO SCH ×2 (08:12→21:07)
[2022-07-18] MEDS: Amiodarone 200 MG TAB PO SCH ×2 (08:13→21:07)
[2022-07-18] MEDS: Apixaban 2.5 MG TAB PO SCH ×2 (08:14→21:07)
[2022-07-18] MEDS ORDERED: Heparin 10,000 UNITS/ 10 ML VIAL ONE (09:02)
[2022-07-18] MEDS: Diltiazem 125 MG in Sodium Chloride 0.9% 100 ML IVPB SCH (13:37)
[2022-07-18] MEDS: Atorvastatin Calcium 20 MG TAB PO SCH (21:07)
[2022-07-19] MEDS: Ampicillin 2 GM in Sodium Chloride 0.9% 100 ML IVPB SCH ×2 (02:56→15:14)
[2022-07-19] MEDS: Acetaminophen 325 MG TAB PO PRN (02:57)
[2022-07-19 04:57] LABS: #Eosinphils 0.3 thou/uL (0.0-0.7); #Lymphocytes 1.8 thou/uL (1.20-3.40); #Monocytes 0.9 thou/uL (0.11-0.59); #Neutrophils 6.2 thou/uL (1.40-6.50); %Basophils 0.4 % (0.0-1.0); %Eosinophils 3.5 % (0.0-10.0); %Lymphocytes 19.7 % (21.0-51.0); %Monocytes 9.9 % (0.0-10.0); %Neutrophils 66.6 % (42.0-75.0); Hemoglobin 11.6 g/dL (12.0-16.0); Mean Corpuscular HGB CONC 32.8 g/dL (32.0-36.0); Mean Corpuscular Hemoglobin 34.6 pg (27.0-31.0); Mean Platelet Volume 8.3 fL (7.4-10.4); Platelet Count 239 10x3/uL (130-400); RBC Distribution Width 14.5 % (11.5-14.5); Red Blood Cell (RBC) Count 3.36 mill/uL (4.20-5.40); White Blood Cell (WBC) Count 9.3 10x3/uL (4.8-10.8)
[2022-07-19 05:18] LABS: ALT (SGPT) 8 U/L (8-55); AST (SGOT) 14 U/L (5-34); Albumin 3.7 g/dL (3.4-4.8); Alkaline Phosphatase 130 U/L (40-110); Anion Gap 18 mmol/L (10-20); BUN (Urea Nitrogen) 23 mg/dL (9.8-20.1); Bilirubin, Total 0.5 mg/dL (0.2-1.2); Calc. Creatinine Clearance 9 mL/min (70-130); Calcium 9.9 mg/dL (7.8-10.44); Carbon Dioxide 27 mmol/L (23-31); Chloride 96 mmol/L (98-107); Estimated GFR 7; Globulin 3.3 g/dL (2.4-3.5); Glucose 99 mg/dL (83-110); Magnesium 2.1 mg/dL (1.6-2.6); Potassium 3.8 mmol/L (3.5-5.1); Sodium 137 mmol/L (136-145)
[2022-07-19] MEDS: Sevelamer Carbonate 800 MG TAB PO SCH ×3 (08:28→16:31)
[2022-07-19] MEDS: Calcitriol 0.25 MCG CAP PO SCH (08:29)
[2022-07-19] MEDS: Amiodarone 200 MG TAB PO SCH ×2 (08:29→20:14)
[2022-07-19] MEDS: Apixaban 2.5 MG TAB PO SCH (08:29)
[2022-07-19] MEDS: Citalopram 10 MG TAB PO SCH (08:30)
[2022-07-19] MEDS: Carvedilol 25 MG TAB PO SCH ×2 (08:30→20:14)
[2022-07-19] MEDS: Atorvastatin Calcium 20 MG TAB PO SCH (20:14)
[2022-07-20] MEDS: Ampicillin 2 GM in Sodium Chloride 0.9% 100 ML IVPB SCH ×2 (03:51→14:27)
[2022-07-20 05:00] LABS: #Basophils 0.1 thou/uL (0.0-0.2); #Eosinphils 0.4 thou/uL (0.0-0.7); #Lymphocytes 1.7 thou/uL (1.20-3.40); #Monocytes 0.8 thou/uL (0.11-0.59); #Neutrophils 5.9 thou/uL (1.40-6.50); %Basophils 0.6 % (0.0-1.0); %Eosinophils 4.3 % (0.0-10.0); %Lymphocytes 19.3 % (21.0-51.0); %Neutrophils 66.7 % (42.0-75.0); Mean Corpuscular HGB CONC 32.5 g/dL (32.0-36.0); Mean Corpuscular Hemoglobin 34.5 pg (27.0-31.0); Mean Platelet Volume 8.4 fL (7.4-10.4); Platelet Count 239 10x3/uL (130-400); RBC Distribution Width 14.4 % (11.5-14.5); Red Blood Cell (RBC) Count 3.47 mill/uL (4.20-5.40); White Blood Cell (WBC) Count 8.9 10x3/uL (4.8-10.8)
[2022-07-20] MEDS: Sevelamer Carbonate 800 MG TAB PO SCH ×2 (13:51→17:50)
[2022-07-20] MEDS: Calcitriol 0.25 MCG CAP PO SCH (13:51)
[2022-07-20] MEDS: Carvedilol 25 MG TAB PO SCH ×4 (13:53→23:20)
[2022-07-20] MEDS: Citalopram 10 MG TAB PO SCH (13:53)
[2022-07-20] MEDS: Amiodarone 200 MG TAB PO SCH ×2 (13:53→20:00)
[2022-07-20] MEDS ORDERED: Bupivacaine/Epinephrine 0.25% 30 ML VIAL ONE (14:26)
[2022-07-20] MEDS ORDERED: fentaNYL PF 100 MCG/2 ML SYRINGE ONE (14:54)
[2022-07-20] MEDS: Atorvastatin Calcium 20 MG TAB PO SCH (20:00)
[2022-07-20] MEDS: Acetaminophen 325 MG TAB PO PRN (23:24)
[2022-07-21] MEDS: Ampicillin 2 GM in Sodium Chloride 0.9% 100 ML IVPB SCH (03:23)
[2022-07-21 07:19] LABS: ALT (SGPT) 8 U/L (8-55); AST (SGOT) 13 U/L (5-34); Albumin 3.8 g/dL (3.4-4.8); Alkaline Phosphatase 133 U/L (40-110); Anion Gap 18 mmol/L (10-20); BUN (Urea Nitrogen) 33 mg/dL (9.8-20.1); Bilirubin, Total 0.4 mg/dL (0.2-1.2); Calc. Creatinine Clearance 9 mL/min (70-130); Calcium 9.6 mg/dL (7.8-10.44); Carbon Dioxide 23 mmol/L (23-31); Chloride 95 mmol/L (98-107); Estimated GFR 6; Globulin 3.4 g/dL (2.4-3.5); Glucose 334 mg/dL (83-110); Magnesium 2.2 mg/dL (1.6-2.6); Potassium 4.7 mmol/L (3.5-5.1); Protein, Total 7.2 g/dL (5.8-8.1); Sodium 131 mmol/L (136-145)
[2022-07-21 07:36] LABS: #Lymphocytes 0.9 thou/uL (1.20-3.40); #Monocytes 0.5 thou/uL (0.11-0.59); #Neutrophils 10.4 thou/uL (1.40-6.50); %Basophils 0.1 % (0.0-1.0); %Lymphocytes 7.6 % (21.0-51.0); %Monocytes 4.3 % (0.0-10.0); %Neutrophils 87.9 % (42.0-75.0); Hemoglobin 12.1 g/dL (12.0-16.0); Mean Corpuscular HGB CONC 31.8 g/dL (32.0-36.0); Mean Platelet Volume 8.7 fL (7.4-10.4); Platelet Count 214 10x3/uL (130-400); RBC Distribution Width 14.4 % (11.5-14.5); Red Blood Cell (RBC) Count 3.56 mill/uL (4.20-5.40); White Blood Cell (WBC) Count 11.9 10x3/uL (4.8-10.8)
[2022-07-21] MEDS: Amiodarone 200 MG TAB PO SCH (08:12)
[2022-07-21] MEDS: Calcitriol 0.25 MCG CAP PO SCH (08:12)
[2022-07-21] MEDS: Sevelamer Carbonate 800 MG TAB PO SCH ×2 (08:12→12:37)
[2022-07-21] MEDS: Citalopram 10 MG TAB PO SCH (08:12)
[2022-07-21] MEDS: Carvedilol 25 MG TAB PO SCH (08:12)
[2022-07-21 11:43] VITALS: BP 144/77; TEMP 98
[2022-07-21] MEDS ORDERED: Apixaban 2.5 MG TAB PO SCH (21:00)
== END 2022-07-21 13:06 | disposition home or self-care (01) | DRG 291 ==
LOC: ERS 07:50 → ERHOLD 10:53 → 2SW 15:16 → OBSVTOIN 07-17 10:07
PROVIDERS: ADMIT Internal Medicine; ATTEND Internal Medicine
PROC: 5A1D70Z Performance of Urinary Filtration, Intermittent, Less than 6 Hours Per Day (ICD-10-PCS; principal; 2022-07-15)
PROC: 0WPGX3Z Removal of Infusion Device from Peritoneal Cavity, External Approach (ICD-10-PCS; 2022-07-20)
DX: I13.2 Hypertensive heart and chronic kidney disease with heart failure and with stage 5 chronic kidney disease, or end stage renal disease (principal); I50.33 Acute on chronic diastolic (congestive) heart failure; J96.01 Acute respiratory failure with hypoxia; N18.6 End stage renal disease; T85.71XA Infection and inflammatory reaction due to peritoneal dialysis catheter, initial encounter; I47.1 Supraventricular tachycardia; N25.81 Secondary hyperparathyroidism of renal origin; T82.868A Thrombosis due to vascular prosthetic devices, implants and grafts, initial encounter; Z20.822 Contact with and (suspected) exposure to COVID-19; E78.5 Hyperlipidemia, unspecified; Y83.8 Other surgical procedures as the cause of abnormal reaction of the patient, or of later complication, without mention of misadventure at the time of the procedure; D63.1 Anemia in chronic kidney disease; F32.A Depression, unspecified; I48.0 Paroxysmal atrial fibrillation; E78.00 Pure hypercholesterolemia, unspecified; E66.9 Obesity, unspecified; E83.39 Other disorders of phosphorus metabolism; Y83.2 Surgical operation with anastomosis, bypass or graft as the cause of abnormal reaction of the patient, or of later complication, without mention of misadventure at the time of the procedure; Z95.0 Presence of cardiac pacemaker; Z99.2 Dependence on renal dialysis; Z79.899 Other long term (current) drug therapy; Z79.01 Long term (current) use of anticoagulants; Z79.82 Long term (current) use of aspirin; Z90.49 Acquired absence of other specified parts of digestive tract; Z80.0 Family history of malignant neoplasm of digestive organs; Z68.25 Body mass index [BMI] 25.0-25.9, adult
CPT/HCPCS: 36415; 51701; 71045; 80053; 80061; 81003; 81015; 83605; 83735; 83880; 83970; 84100; 84145; 84443; 84484; 85025; 86704; 87040; 87070; 87077; 87086; 87186; 87205; 87633; 87798; 90935; 93005; 93306; 93970; 96365; 96375; 96376; G0257; G0378; J0290; J0692; J0696; J1644; J3370; J3490

== ENCOUNTER 2022-11-05 16:16 | Inpatient (IN) | payer MEDICARE, OTHER ==
[2022-11-05 19:49] LABS: #Basophils 0.1 thou/uL (0.0-0.2); #Eosinphils 0.2 thou/uL (0.0-0.7); #Monocytes 0.8 thou/uL (0.11-0.59); #Neutrophils 8.8 thou/uL (1.40-6.50); %Basophils 0.6 % (0.0-1.0); %Eosinophils 1.4 % (0.0-10.0); %Lymphocytes 11.6 % (21.0-51.0); %Neutrophils 78.8 % (42.0-75.0); Hemoglobin 13.1 g/dL (12.0-16.0); Mean Corpuscular HGB CONC 32.8 g/dL (32.0-36.0); Mean Corpuscular Hemoglobin 33.3 pg (27.0-31.0); Mean Corpuscular Volume 101.5 fl (78.0-98.0); Mean Platelet Volume 10.6 fL (7.4-10.4); Platelet Count 255 10x3/uL (130-400); RBC Distribution Width 18.4 % (11.5-14.5); Red Blood Cell (RBC) Count 3.93 mill/uL (4.20-5.40); White Blood Cell (WBC) Count 11.2 10x3/uL (4.8-10.8)
[2022-11-05 20:16] LABS: ALT (SGPT) 10 U/L (8-55); AST (SGOT) 16 U/L (5-34); Albumin 4.4 g/dL (3.4-4.8); Alkaline Phosphatase 156 U/L (40-110); Anion Gap 23 mmol/L (10-20); BUN (Urea Nitrogen) 28 mg/dL (9.8-20.1); Bilirubin, Total 0.9 mg/dL (0.2-1.2); Calc. Creatinine Clearance 0 mL/min (70-130); Calcium 12.2 mg/dL (7.8-10.44); Carbon Dioxide 24 mmol/L (23-31); Chloride 94 mmol/L (98-107); Estimated GFR 5; Globulin 3.4 g/dL (2.4-3.5); Glucose 109 mg/dL (83-110); Lipase Less than 4 U/L (8-78); Potassium 4.7 mmol/L (3.5-5.1); Protein, Total 7.8 g/dL (5.8-8.1); Sodium 136 mmol/L (136-145)
[2022-11-05 20:34] LABS: CKMB 1.7 ng/mL (0-6.6)
[2022-11-05] MEDS ORDERED: Ondansetron PF 4 MG/2 ML Vial ONE (20:49)
[2022-11-05] MEDS ORDERED: Ondansetron PF 4 MG/2 ML Vial IVP PRN (22:53)
[2022-11-05 23:46] LABS: Troponin I 0.073 ng/mL (< 0.028)
[2022-11-06 03:14] LABS: Troponin I 0.078 ng/mL (< 0.028)
[2022-11-06 05:43] LABS: #Basophils 0.1 thou/uL (0.0-0.2); #Eosinphils 0.2 thou/uL (0.0-0.7); #Monocytes 0.9 thou/uL (0.11-0.59); #Neutrophils 8.3 thou/uL (1.40-6.50); %Basophils 0.9 % (0.0-1.0); %Lymphocytes 11.7 % (21.0-51.0); %Monocytes 8.1 % (0.0-10.0); %Neutrophils 76.8 % (42.0-75.0); Hemoglobin 11.9 g/dL (12.0-16.0); Mean Corpuscular Hemoglobin 32.6 pg (27.0-31.0); Mean Corpuscular Volume 101.9 fl (78.0-98.0); Mean Platelet Volume 10.4 fL (7.4-10.4); Platelet Count 224 10x3/uL (130-400); RBC Distribution Width 18.3 % (11.5-14.5); Red Blood Cell (RBC) Count 3.65 mill/uL (4.20-5.40); White Blood Cell (WBC) Count 10.8 10x3/uL (4.8-10.8)
[2022-11-06 06:08] LABS: Anion Gap 21 mmol/L (10-20); BUN (Urea Nitrogen) 30 mg/dL (9.8-20.1); Calc. Creatinine Clearance 6 mL/min (70-130); Calcium 11.7 mg/dL (7.8-10.44); Carbon Dioxide 24 mmol/L (23-31); Chloride 97 mmol/L (98-107); Estimated GFR 4; Glucose 100 mg/dL (83-110); Potassium 4.9 mmol/L (3.5-5.1); Sodium 137 mmol/L (136-145)
[2022-11-06] MEDS ORDERED: Famotidine/PF 20 mg/2ml Vial ONE (08:03)
[2022-11-06] MEDS: Famotidine/PF 20 mg/2ml Vial SLOW IVP SCH (08:10)
[2022-11-06] MEDS ORDERED: Heparin 10,000 UNITS/ 10 ML VIAL ONE (09:05)
[2022-11-06] MEDS: Sevelamer Carbonate 800 MG TAB PO SCH ×2 (13:50→18:41)
[2022-11-06 15:36] VITALS: BMI 25.4
[2022-11-06] MEDS ORDERED: Nitroglycerin 0.4 MG TAB (25 Tab Bottle) SL PRN (16:54)
[2022-11-06] MEDS ORDERED: Ondansetron PF 4 MG/2 ML Vial IVP PRN (19:40)
[2022-11-06] MEDS ORDERED: Ondansetron ODT 4 MG TAB PO PRN (19:40)
[2022-11-06] MEDS: Apixaban 2.5 MG TAB PO SCH (20:40)
[2022-11-06] MEDS: Atorvastatin Calcium 20 MG TAB PO SCH (20:40)
[2022-11-06] MEDS: Carvedilol 6.25 MG TAB PO SCH (20:40)
[2022-11-06] MEDS ORDERED: Carvedilol 25 MG TAB PO SCH (21:00)
[2022-11-07 07:46] LABS: #Basophils 0.1 thou/uL (0.0-0.2); #Eosinphils 0.2 thou/uL (0.0-0.7); #Monocytes 0.8 thou/uL (0.11-0.59); #Neutrophils 5.7 thou/uL (1.40-6.50); %Eosinophils 2.8 % (0.0-10.0); %Lymphocytes 15.5 % (21.0-51.0); %Monocytes 10.2 % (0.0-10.0); %Neutrophils 69.9 % (42.0-75.0); Hemoglobin 12.3 g/dL (12.0-16.0); Mean Corpuscular HGB CONC 31.9 g/dL (32.0-36.0); Mean Corpuscular Hemoglobin 33.3 pg (27.0-31.0); Mean Corpuscular Volume 104.3 fl (78.0-98.0); Platelet Count 193 10x3/uL (130-400); Red Blood Cell (RBC) Count 3.69 mill/uL (4.20-5.40); White Blood Cell (WBC) Count 8.1 10x3/uL (4.8-10.8)
[2022-11-07] MEDS: Sevelamer Carbonate 800 MG TAB PO SCH ×3 (07:57→19:19)
[2022-11-07] MEDS: Citalopram 10 MG TAB PO SCH (07:58)
[2022-11-07] MEDS: Famotidine/PF 20 mg/2ml Vial SLOW IVP SCH (07:58)
[2022-11-07] MEDS: Ferrous Sulfate 325 MG TAB PO SCH (07:59)
[2022-11-07] MEDS: Carvedilol 6.25 MG TAB PO SCH ×2 (08:00→20:29)
[2022-11-07 08:10] LABS: ALT (SGPT) 10 U/L (8-55); AST (SGOT) 14 U/L (5-34); Albumin 3.7 g/dL (3.4-4.8); Alkaline Phosphatase 142 U/L (40-110); Anion Gap 18 mmol/L (10-20); BUN (Urea Nitrogen) 18 mg/dL (9.8-20.1); Bilirubin, Total 0.8 mg/dL (0.2-1.2); Calc. Creatinine Clearance 9 mL/min (70-130); Calcium 10.8 mg/dL (7.8-10.44); Carbon Dioxide 22 mmol/L (23-31); Chloride 97 mmol/L (98-107); Estimated GFR 7; Globulin 3.4 g/dL (2.4-3.5); Glucose 94 mg/dL (83-110); Potassium 4.2 mmol/L (3.5-5.1); Protein, Total 7.1 g/dL (5.8-8.1); Sodium 133 mmol/L (136-145)
[2022-11-07] MEDS: Acetaminophen 325 MG TAB PO PRN ×2 (08:58→23:01)
[2022-11-07] MEDS ORDERED: Non-Formulary Item 1 EACH (Ferrous Sulfate [Ferrous Sulfate] 325 MG Tablet) PO SCH (09:00)
[2022-11-07] MEDS ORDERED: Heparin 10,000 UNITS/ 10 ML VIAL ONE (09:06)
[2022-11-07] MEDS: Apixaban 2.5 MG TAB PO SCH ×2 (13:02→20:29)
[2022-11-07] MEDS: Atorvastatin Calcium 20 MG TAB PO SCH (20:29)
[2022-11-08] MEDS: Sevelamer Carbonate 800 MG TAB PO SCH ×3 (08:44→19:29)
[2022-11-08] MEDS: Apixaban 2.5 MG TAB PO SCH ×2 (08:44→21:11)
[2022-11-08] MEDS: Carvedilol 6.25 MG TAB PO SCH ×2 (08:45→21:11)
[2022-11-08] MEDS: Amiodarone 200 MG TAB PO SCH (08:46)
[2022-11-08] MEDS: Ferrous Sulfate 325 MG TAB PO SCH (08:46)
[2022-11-08] MEDS: Citalopram 10 MG TAB PO SCH (08:46)
[2022-11-08 09:05] LABS: #Basophils 0.1 thou/uL (0.0-0.2); #Eosinphils 0.3 thou/uL (0.0-0.7); #Neutrophils 5.1 thou/uL (1.40-6.50); %Eosinophils 3.2 % (0.0-10.0); %Lymphocytes 17.7 % (21.0-51.0); %Monocytes 12.3 % (0.0-10.0); %Neutrophils 65.2 % (42.0-75.0); Hemoglobin 12.6 g/dL (12.0-16.0); Mean Corpuscular HGB CONC 30.8 g/dL (32.0-36.0); Mean Corpuscular Hemoglobin 32.4 pg (27.0-31.0); Mean Corpuscular Volume 105.1 fl (78.0-98.0); Mean Platelet Volume 10.5 fL (7.4-10.4); Platelet Count 180 10x3/uL (130-400); RBC Distribution Width 17.9 % (11.5-14.5); Red Blood Cell (RBC) Count 3.89 mill/uL (4.20-5.40); White Blood Cell (WBC) Count 7.8 10x3/uL (4.8-10.8)
[2022-11-08 09:22] LABS: Anion Gap 18 mmol/L (10-20); BUN (Urea Nitrogen) 19 mg/dL (9.8-20.1); Calc. Creatinine Clearance 11 mL/min (70-130); Calcium 11.6 mg/dL (7.8-10.44); Carbon Dioxide 21 mmol/L (23-31); Chloride 97 mmol/L (98-107); Estimated GFR 8; Glucose 120 mg/dL (83-110); Sodium 132 mmol/L (136-145)
[2022-11-08] MEDS: Atorvastatin Calcium 20 MG TAB PO SCH (21:11)
[2022-11-09] MEDS: Acetaminophen 325 MG TAB PO PRN ×2 (01:02→18:06)
[2022-11-09 03:35] LABS: #Basophils 0.1 thou/uL (0.0-0.2); #Eosinphils 0.3 thou/uL (0.0-0.7); #Monocytes 0.8 thou/uL (0.11-0.59); #Neutrophils 6.5 thou/uL (1.40-6.50); %Basophils 0.8 % (0.0-1.0); %Eosinophils 2.9 % (0.0-10.0); %Lymphocytes 14.7 % (21.0-51.0); %Monocytes 9.3 % (0.0-10.0); %Neutrophils 71.7 % (42.0-75.0); Hemoglobin 12.3 g/dL (12.0-16.0); Mean Corpuscular HGB CONC 32.2 g/dL (32.0-36.0); Mean Corpuscular Volume 102.4 fl (78.0-98.0); Mean Platelet Volume 10.1 fL (7.4-10.4); Platelet Count 184 10x3/uL (130-400); RBC Distribution Width 17.3 % (11.5-14.5); Red Blood Cell (RBC) Count 3.73 mill/uL (4.20-5.40); White Blood Cell (WBC) Count 9.1 10x3/uL (4.8-10.8)
[2022-11-09 03:56] LABS: Actual Bicarbonate (HCO3v) 22.1 mEq/L (22-28); Base Excess -2.1 mEq/L (-2.0 to +3.0); Calcium, Ionized (venous) 1.25 mmol/L (1.16-1.32); Chloride (VBG) 95 mmol/L (98-106); Hematocrit-VBG 40 % (36.0-47.0); Hemoglobin (Hb) 13.6 g/dL (11.7-16.1); Potassium (VBG) 4.28 mmol/L (3.70-5.30); Sodium 131.5 mmol/L (133-146); pH (venous) 7.405 (7.32-7.43)
[2022-11-09 04:25] LABS: Chloride 97 mmol/L (98-107); Potassium 4.3 mmol/L (3.5-5.1); Sodium 131 mmol/L (136-145)
[2022-11-09 04:26] LABS: Anion Gap 17 mmol/L (10-20); BUN (Urea Nitrogen) 27 mg/dL (9.8-20.1); Calc. Creatinine Clearance 9 mL/min (70-130); Calcium 11.4 mg/dL (7.8-10.44); Carbon Dioxide 21 mmol/L (23-31); Estimated GFR 6; Glucose 135 mg/dL (83-110)
[2022-11-09] MEDS ORDERED: Heparin 10,000 UNITS/ 10 ML VIAL ONE (10:53)
[2022-11-09] MEDS: Ferrous Sulfate 325 MG TAB PO SCH (14:15)
[2022-11-09] MEDS: Amiodarone 200 MG TAB PO SCH (14:16)
[2022-11-09] MEDS: Carvedilol 6.25 MG TAB PO SCH ×2 (14:16→20:29)
[2022-11-09] MEDS: Sevelamer Carbonate 800 MG TAB PO SCH ×3 (14:16→18:06)
[2022-11-09] MEDS: Apixaban 2.5 MG TAB PO SCH ×2 (14:16→20:30)
[2022-11-09] MEDS: Folic Acid/Vit B Comp W-C PO SCH (14:16)
[2022-11-09] MEDS: Atorvastatin Calcium 20 MG TAB PO SCH (20:30)
[2022-11-10] MEDS: Ferrous Sulfate 325 MG TAB PO SCH (08:26)
[2022-11-10] MEDS: Sevelamer Carbonate 800 MG TAB PO SCH ×2 (08:26→11:02)
[2022-11-10] MEDS: Amiodarone 200 MG TAB PO SCH (08:27)
[2022-11-10] MEDS: Carvedilol 6.25 MG TAB PO SCH (08:27)
[2022-11-10] MEDS: Apixaban 2.5 MG TAB PO SCH (08:27)
[2022-11-10] MEDS: Folic Acid/Vit B Comp W-C PO SCH (08:28)
[2022-11-10 12:15] VITALS: BP 131/70; TEMP 97.8
== END 2022-11-10 12:10 | disposition home or self-care (01) | DRG 291 ==
LOC: ERS 16:16 → ERHOLD 22:56 → 2SW 23:01 → OBSVTOIN 11-06 16:30
PROVIDERS: ADMIT Hospitalist; ATTEND Internal Medicine
PROC: 5A1D70Z Performance of Urinary Filtration, Intermittent, Less than 6 Hours Per Day (ICD-10-PCS; principal; 2022-11-06)
PROC: 5A1D70Z Performance of Urinary Filtration, Intermittent, Less than 6 Hours Per Day (ICD-10-PCS; 2022-11-07)
DX: I13.2 Hypertensive heart and chronic kidney disease with heart failure and with stage 5 chronic kidney disease, or end stage renal disease (principal); G93.41 Metabolic encephalopathy; J96.01 Acute respiratory failure with hypoxia; I50.33 Acute on chronic diastolic (congestive) heart failure; N18.6 End stage renal disease; I48.20 Chronic atrial fibrillation, unspecified; E83.52 Hypercalcemia; D63.1 Anemia in chronic kidney disease; F41.9 Anxiety disorder, unspecified; E78.5 Hyperlipidemia, unspecified; Z95.0 Presence of cardiac pacemaker; Z99.2 Dependence on renal dialysis; Z79.899 Other long term (current) drug therapy; Z85.528 Personal history of other malignant neoplasm of kidney; Z91.158 Patient's noncompliance with renal dialysis for other reason
CPT/HCPCS: 36415; 36416; 70450; 71045; 71046; 80048; 80053; 82310; 82553; 82805; 83690; 84484; 85025; 90935; 93005; 94760; 96372; 96374; 96375; G0257; G0378; J1644; J1650; J2405; Q0162; S0028

== ENCOUNTER 2023-04-05 18:58 | Inpatient (IN) | payer MEDICARE ==
[2023-04-05 20:41] LABS: #Basophils 0.1 thou/uL (0.0-0.2); #Monocytes 0.6 thou/uL (0.11-0.59); #Neutrophils 4.4 thou/uL (1.40-6.50); %Eosinophils 0.5 % (0.0-10.0); %Lymphocytes 17.8 % (21.0-51.0); %Monocytes 8.9 % (0.0-10.0); %Neutrophils 71.2 % (42.0-75.0); Hematocrit 39.3 % (36.0-47.0); Hemoglobin 13.1 g/dL (12.0-16.0); Mean Corpuscular HGB CONC 33.3 g/dL (32.0-36.0); Mean Corpuscular Hemoglobin 33.9 pg (27.0-31.0); Mean Corpuscular Volume 101.8 fl (78.0-98.0); Mean Platelet Volume 11.5 fL (7.4-10.4); Platelet Count 153 10x3/uL (130-400); RBC Distribution Width 16.2 % (11.5-14.5); Red Blood Cell (RBC) Count 3.86 mill/uL (4.20-5.40); White Blood Cell (WBC) Count 6.2 10x3/uL (4.8-10.8)
[2023-04-05] MEDS ORDERED: Ondansetron PF 4 MG/2 ML Vial ONE (20:42)
[2023-04-05] MEDS ORDERED: Morphine 4 MG/ML VIAL ONE (20:45)
[2023-04-05] MEDS ORDERED: Ondansetron ODT 4 MG TAB ONE (20:52)
[2023-04-05 21:08] LABS: Troponin I 0.099 ng/mL (< 0.028)
[2023-04-05 21:10] LABS: ALT (SGPT) 10 U/L (8-55); AST (SGOT) 17 U/L (5-34); Albumin 4.5 g/dL (3.4-4.8); Alkaline Phosphatase 128 U/L (40-110); Anion Gap 21 mmol/L (10-20); BUN (Urea Nitrogen) 29 mg/dL (9.8-20.1); Bilirubin, Total 1.9 mg/dL (0.2-1.2); Calc. Creatinine Clearance 0 mL/min (70-130); Calcium 11.6 mg/dL (7.8-10.44); Carbon Dioxide 26 mmol/L (23-31); Chloride 92 mmol/L (98-107); Estimated GFR 8; Globulin 3.7 g/dL (2.4-3.5); Glucose 98 mg/dL (83-110); Potassium 4.9 mmol/L (3.5-5.1); Protein, Total 8.2 g/dL (5.8-8.1); Sodium 134 mmol/L (136-145)
[2023-04-05 21:14] LABS: SARS-CoV-2 NAA Rapid Test Not Detected (NotDetected)
[2023-04-05] MEDS ORDERED: Ondansetron ODT 4 MG TAB SL PRN (23:15)
[2023-04-05] MEDS ORDERED: Acetaminophen 325 MG TAB PO PRN (23:15)
[2023-04-05] MEDS ORDERED: Ondansetron PF 4 MG/2 ML Vial IVP PRN (23:15)
[2023-04-05] MEDS ORDERED: Nitroglycerin 0.4 MG TAB (25 Tab Bottle) SL PRN (23:56)
[2023-04-06 01:35] LABS: Troponin I 0.084 ng/mL (< 0.028)
[2023-04-06 02:37] LABS: #Basophils 0.1 thou/uL (0.0-0.2); #Eosinphils 0.1 thou/uL (0.0-0.7); #Monocytes 0.6 thou/uL (0.11-0.59); #Neutrophils 2.6 thou/uL (1.40-6.50); %Basophils 1.5 % (0.0-1.0); %Eosinophils 1.9 % (0.0-10.0); %Lymphocytes 26.3 % (21.0-51.0); %Monocytes 12.9 % (0.0-10.0); Hematocrit 36.4 % (36.0-47.0); Hemoglobin 11.8 g/dL (12.0-16.0); Mean Corpuscular HGB CONC 32.4 g/dL (32.0-36.0); Mean Corpuscular Hemoglobin 33.6 pg (27.0-31.0); Mean Corpuscular Volume 103.7 fl (78.0-98.0); Mean Platelet Volume 11.4 fL (7.4-10.4); Platelet Count 136 10x3/uL (130-400); RBC Distribution Width 16.5 % (11.5-14.5); Red Blood Cell (RBC) Count 3.51 mill/uL (4.20-5.40); White Blood Cell (WBC) Count 4.6 10x3/uL (4.8-10.8)
[2023-04-06 03:07] LABS: Troponin I 0.099 ng/mL (< 0.028)
[2023-04-06 04:28] LABS: Anion Gap 22 mmol/L (10-20); BUN (Urea Nitrogen) 33 mg/dL (9.8-20.1); Calc. Creatinine Clearance 10 mL/min (70-130); Calcium 11.3 mg/dL (7.8-10.44); Carbon Dioxide 22 mmol/L (23-31); Chloride 96 mmol/L (98-107); Estimated GFR 7; Glucose 82 mg/dL (83-110); Potassium 5.7 mmol/L (3.5-5.1); Sodium 134 mmol/L (136-145)
[2023-04-06] MEDS ORDERED: hydrALAZINE 20 MG/ML VIAL SLOW IVP PRN (04:46)
[2023-04-06] MEDS ORDERED: Aspirin Chewable 81 MG TAB ONE (09:29)
[2023-04-06] MEDS: Aspirin 81 mg Enteric Coated Tablet PO SCH (09:32)
[2023-04-06] MEDS ORDERED: Dextrose 50% Abboject 50 ML SYRINGE SLOW IVP PRN (09:39)
[2023-04-06] MEDS ORDERED: HumaLOG 300 UNITS/3 ML VIAL SC PRN ×2 (09:39)
[2023-04-06] MEDS ORDERED: Glucagon 1 MG/ML KIT IM PRN (09:39)
[2023-04-06] MEDS ORDERED: Dextrose 5% in Water 1,000 ML IV PRN (09:39)
[2023-04-06 18:44] VITALS: BMI 21.4
[2023-04-07] MEDS ORDERED: Haloperidol 1 MG TAB PO SCH (07:00)
[2023-04-07] MEDS ORDERED: Lidocaine-Prilocaine 2.5% Cream 5 GM TUBE TOP SCH (08:00)
[2023-04-07] MEDS ORDERED: hydrALAZINE 25 MG TAB PO SCH (09:00)
[2023-04-07] MEDS: Aspirin 81 mg Enteric Coated Tablet PO SCH (13:41)
[2023-04-07] MEDS: Sevelamer Carbonate 800 MG TAB PO SCH ×3 (13:41→17:52)
[2023-04-07] MEDS: Amiodarone 200 MG TAB PO SCH (13:42)
[2023-04-07] MEDS: hydrALAZINE 25 MG TAB PO SCH ×2 (13:42→21:15)
[2023-04-07] MEDS: Carvedilol 6.25 MG TAB PO SCH ×2 (13:46→21:15)
[2023-04-07] MEDS ORDERED: Polyethylene Glycol 3350 17 GM Packet PO SCH (15:00)
[2023-04-07 17:32] LABS: #Basophils 0.1 thou/uL (0.0-0.2); #Eosinphils 0.1 thou/uL (0.0-0.7); #Monocytes 0.5 thou/uL (0.11-0.59); #Neutrophils 4.4 thou/uL (1.40-6.50); %Basophils 0.9 % (0.0-1.0); %Eosinophils 1.6 % (0.0-10.0); %Lymphocytes 13.1 % (21.0-51.0); %Monocytes 7.9 % (0.0-10.0); %Neutrophils 76.2 % (42.0-75.0); Hematocrit 40.4 % (36.0-47.0); Hemoglobin 13.1 g/dL (12.0-16.0); Mean Corpuscular HGB CONC 32.4 g/dL (32.0-36.0); Mean Corpuscular Hemoglobin 33.9 pg (27.0-31.0); Mean Corpuscular Volume 104.7 fl (78.0-98.0); Mean Platelet Volume 11.1 fL (7.4-10.4); Platelet Count 154 10x3/uL (130-400); RBC Distribution Width 16.5 % (11.5-14.5); Red Blood Cell (RBC) Count 3.86 mill/uL (4.20-5.40); White Blood Cell (WBC) Count 5.7 10x3/uL (4.8-10.8)
[2023-04-07 17:48] LABS: ALT (SGPT) 12 U/L (8-55); AST (SGOT) 15 U/L (5-34); Albumin 3.7 g/dL (3.4-4.8); Alkaline Phosphatase 128 U/L (40-110); Anion Gap 16 mmol/L (10-20); BUN (Urea Nitrogen) 13 mg/dL (9.8-20.1); Bilirubin, Total 1.5 mg/dL (0.2-1.2); Calc. Creatinine Clearance 13 mL/min (70-130); Calcium 10.4 mg/dL (7.8-10.44); Carbon Dioxide 22 mmol/L (23-31); Chloride 97 mmol/L (98-107); Estimated GFR 13; Globulin 3.5 g/dL (2.4-3.5); Glucose 170 mg/dL (83-110); Magnesium 1.9 mg/dL (1.6-2.6); Potassium 4.4 mmol/L (3.5-5.1); Protein, Total 7.2 g/dL (5.8-8.1); Sodium 131 mmol/L (136-145)
[2023-04-07 18:38] LABS: Actual Bicarbonate (HCO3v) 23.8 mEq/L (22-28); Base Excess 5.1 mEq/L (-2.0 to +3.0); Calcium, Ionized (venous) 1.01 mmol/L (1.16-1.32); Chloride (VBG) 99 mmol/L (98-106); Hematocrit-VBG 38 % (36.0-47.0); Potassium (VBG) 4.64 mmol/L (3.70-5.30); Sodium 131 mmol/L (133-146); pH (venous) 7.673 (7.32-7.43)
[2023-04-07 20:37] LABS: Lactic Acid 2.4 mmol/L (0.5-2.2)
[2023-04-07] MEDS: Atorvastatin Calcium 20 MG TAB PO SCH (21:15)
[2023-04-07] MEDS: Apixaban 2.5 MG TAB PO SCH (21:15)
[2023-04-07] MEDS: Senokot S 8.6-50 MG TAB PO SCH (21:15)
[2023-04-08] MEDS: Acetaminophen 325 MG TAB PO PRN ×3 (04:10→21:54)
[2023-04-08 05:46] LABS: #Eosinphils 0.1 thou/uL (0.0-0.7); #Monocytes 0.4 thou/uL (0.11-0.59); #Neutrophils 3.4 thou/uL (1.40-6.50); %Basophils 0.6 % (0.0-1.0); %Eosinophils 2.1 % (0.0-10.0); %Lymphocytes 17.2 % (21.0-51.0); %Monocytes 8.1 % (0.0-10.0); %Neutrophils 71.8 % (42.0-75.0); Hematocrit 36.1 % (36.0-47.0); Hemoglobin 11.4 g/dL (12.0-16.0); Mean Corpuscular HGB CONC 31.6 g/dL (32.0-36.0); Mean Corpuscular Hemoglobin 32.9 pg (27.0-31.0); Mean Platelet Volume 11.2 fL (7.4-10.4); Platelet Count 145 10x3/uL (130-400); RBC Distribution Width 16.6 % (11.5-14.5); Red Blood Cell (RBC) Count 3.47 mill/uL (4.20-5.40); White Blood Cell (WBC) Count 4.7 10x3/uL (4.8-10.8)
[2023-04-08 06:20] LABS: Anion Gap 15 mmol/L (10-20); BUN (Urea Nitrogen) 17 mg/dL (9.8-20.1); Calc. Creatinine Clearance 11 mL/min (70-130); Calcium 10.6 mg/dL (7.8-10.44); Carbon Dioxide 26 mmol/L (23-31); Chloride 97 mmol/L (98-107); Estimated GFR 11; Glucose 153 mg/dL (83-110); Magnesium 2.1 mg/dL (1.6-2.6); Potassium 4.2 mmol/L (3.5-5.1); Sodium 134 mmol/L (136-145)
[2023-04-08] MEDS: Polyethylene Glycol 3350 17 GM Packet PO SCH (08:32)
[2023-04-08] MEDS: hydrALAZINE 25 MG TAB PO SCH ×3 (08:32→21:55)
[2023-04-08] MEDS: Senokot S 8.6-50 MG TAB PO SCH ×2 (08:32→21:55)
[2023-04-08] MEDS: Aspirin 81 mg Enteric Coated Tablet PO SCH (08:32)
[2023-04-08] MEDS: Apixaban 2.5 MG TAB PO SCH ×2 (08:32→21:55)
[2023-04-08] MEDS: Sevelamer Carbonate 800 MG TAB PO SCH ×3 (08:32→18:12)
[2023-04-08] MEDS: Carvedilol 6.25 MG TAB PO SCH ×2 (08:32→21:53)
[2023-04-08] MEDS: Amiodarone 200 MG TAB PO SCH (08:32)
[2023-04-08] MEDS ORDERED: Polyethylene Glycol 3350 17 GM Packet PO SCH (09:00)
[2023-04-08] MEDS ORDERED: Ondansetron PF 4 MG/2 ML Vial IVP PRN (09:23)
[2023-04-08] MEDS ORDERED: Ondansetron ODT 8 MG TAB SL PRN (09:24)
[2023-04-08 10:09] LABS: ALT (SGPT) 10 U/L (8-55); AST (SGOT) 15 U/L (5-34); Albumin 3.7 g/dL (3.4-4.8); Alkaline Phosphatase 109 U/L (40-110); Bilirubin, Direct 0.6 mg/dL (0.1-0.3); Bilirubin, Total 1.4 mg/dL (0.2-1.2); Protein, Total 6.7 g/dL (5.8-8.1)
[2023-04-08] MEDS: Atorvastatin Calcium 20 MG TAB PO SCH (21:55)
[2023-04-09 04:26] LABS: #Eosinphils 0.1 thou/uL (0.0-0.7); #Monocytes 0.4 thou/uL (0.11-0.59); #Neutrophils 3.1 thou/uL (1.40-6.50); %Basophils 0.9 % (0.0-1.0); %Eosinophils 2.7 % (0.0-10.0); %Monocytes 8.9 % (0.0-10.0); %Neutrophils 69.3 % (42.0-75.0); Hematocrit 38.2 % (36.0-47.0); Hemoglobin 12.2 g/dL (12.0-16.0); Mean Corpuscular HGB CONC 31.9 g/dL (32.0-36.0); Mean Corpuscular Hemoglobin 33.6 pg (27.0-31.0); Mean Corpuscular Volume 105.2 fl (78.0-98.0); Mean Platelet Volume 11.3 fL (7.4-10.4); Platelet Count 134 10x3/uL (130-400); RBC Distribution Width 16.5 % (11.5-14.5); Red Blood Cell (RBC) Count 3.63 mill/uL (4.20-5.40); White Blood Cell (WBC) Count 4.4 10x3/uL (4.8-10.8)
[2023-04-09 04:47] LABS: Anion Gap 14 mmol/L (10-20); BUN (Urea Nitrogen) 10 mg/dL (9.8-20.1); Calc. Creatinine Clearance 16 mL/min (70-130); Calcium 10.4 mg/dL (7.8-10.44); Carbon Dioxide 26 mmol/L (23-31); Chloride 97 mmol/L (98-107); Estimated GFR 16; Glucose 96 mg/dL (83-110); Magnesium 1.9 mg/dL (1.6-2.6); Potassium 4.1 mmol/L (3.5-5.1); Sodium 133 mmol/L (136-145)
[2023-04-09] MEDS: Senokot S 8.6-50 MG TAB PO SCH ×2 (09:53→20:06)
[2023-04-09] MEDS: Carvedilol 6.25 MG TAB PO SCH ×2 (09:53→20:06)
[2023-04-09] MEDS: Aspirin 81 mg Enteric Coated Tablet PO SCH (09:53)
[2023-04-09] MEDS: Polyethylene Glycol 3350 17 GM Packet PO SCH (09:53)
[2023-04-09] MEDS: hydrALAZINE 25 MG TAB PO SCH ×3 (09:53→20:06)
[2023-04-09] MEDS: Apixaban 2.5 MG TAB PO SCH ×2 (09:53→20:06)
[2023-04-09] MEDS: Amiodarone 200 MG TAB PO SCH (09:54)
[2023-04-09] MEDS: Sevelamer Carbonate 800 MG TAB PO SCH ×3 (09:54→17:18)
[2023-04-09] MEDS: Atorvastatin Calcium 20 MG TAB PO SCH (20:06)
[2023-04-09] MEDS: Acetaminophen 325 MG TAB PO PRN (20:06)
[2023-04-10 04:46] LABS: #Eosinphils 0.2 thou/uL (0.0-0.7); #Monocytes 0.4 thou/uL (0.11-0.59); #Neutrophils 3.7 thou/uL (1.40-6.50); %Basophils 0.4 % (0.0-1.0); %Eosinophils 2.9 % (0.0-10.0); %Lymphocytes 15.8 % (21.0-51.0); %Monocytes 7.8 % (0.0-10.0); %Neutrophils 72.7 % (42.0-75.0); Hematocrit 37.2 % (36.0-47.0); Hemoglobin 12.1 g/dL (12.0-16.0); Mean Corpuscular HGB CONC 32.5 g/dL (32.0-36.0); Mean Corpuscular Hemoglobin 33.6 pg (27.0-31.0); Mean Corpuscular Volume 103.3 fl (78.0-98.0); Mean Platelet Volume 10.9 fL (7.4-10.4); Platelet Count 156 10x3/uL (130-400); RBC Distribution Width 16.6 % (11.5-14.5); White Blood Cell (WBC) Count 5.1 10x3/uL (4.8-10.8)
[2023-04-10 05:11] LABS: Anion Gap 16 mmol/L (10-20); BUN (Urea Nitrogen) 16 mg/dL (9.8-20.1); Calc. Creatinine Clearance 10 mL/min (70-130); Calcium 10.9 mg/dL (7.8-10.44); Carbon Dioxide 26 mmol/L (23-31); Chloride 94 mmol/L (98-107); Estimated GFR 10; Glucose 120 mg/dL (83-110); Magnesium 1.9 mg/dL (1.6-2.6); Potassium 4.5 mmol/L (3.5-5.1); Sodium 131 mmol/L (136-145)
[2023-04-10] MEDS: Sevelamer Carbonate 800 MG TAB PO SCH ×3 (09:13→17:43)
[2023-04-10] MEDS: hydrALAZINE 25 MG TAB PO SCH ×2 (09:13→17:44)
[2023-04-10] MEDS ORDERED: Haloperidol 1 MG TAB PO SCH (10:00)
[2023-04-10 16:36] VITALS: BP 130/58; TEMP 97.6
[2023-04-10] MEDS: Senokot S 8.6-50 MG TAB PO SCH (17:16)
[2023-04-10] MEDS: Polyethylene Glycol 3350 17 GM Packet PO SCH (17:16)
[2023-04-10] MEDS: Carvedilol 6.25 MG TAB PO SCH (17:17)
[2023-04-10] MEDS: Aspirin 81 mg Enteric Coated Tablet PO SCH (17:18)
[2023-04-10] MEDS: Amiodarone 200 MG TAB PO SCH (17:18)
[2023-04-10] MEDS: Apixaban 2.5 MG TAB PO SCH (17:18)
[2023-04-10] MEDS: Acetaminophen 325 MG TAB PO PRN (17:44)
== END 2023-04-10 18:14 | disposition home health service (06) | DRG 280 ==
LOC: ERS 18:58 → ERHOLD 23:00 → 2NO 04-06 15:38 → OBSVTOIN 04-07 15:00
PROVIDERS: ADMIT Internal Medicine; ATTEND Family Medicine
PROC: 4A043R1 Measurement of Venous Saturation, Peripheral, Percutaneous Approach (ICD-10-PCS; principal; 2023-04-07)
DX: I13.2 Hypertensive heart and chronic kidney disease with heart failure and with stage 5 chronic kidney disease, or end stage renal disease (principal); I21.4 Non-ST elevation (NSTEMI) myocardial infarction; G93.41 Metabolic encephalopathy; N18.6 End stage renal disease; E87.1 Hypo-osmolality and hyponatremia; C64.1 Malignant neoplasm of right kidney, except renal pelvis; Z51.5 Encounter for palliative care; E83.52 Hypercalcemia; I48.91 Unspecified atrial fibrillation; Z88.1 Allergy status to other antibiotic agents; Z79.01 Long term (current) use of anticoagulants; Z79.899 Other long term (current) drug therapy; Z95.0 Presence of cardiac pacemaker; Z11.52 Encounter for screening for COVID-19; M79.89 Other specified soft tissue disorders; D63.1 Anemia in chronic kidney disease; E87.5 Hyperkalemia; I73.9 Peripheral vascular disease, unspecified; K59.00 Constipation, unspecified
CPT/HCPCS: 36415; 36416; 70450; 71045; 71260; 74177; 80048; 80053; 80076; 82805; 83605; 83690; 83735; 83880; 84484; 85025; 87040; 90935; 93005; 93010; 93306; 93923; 94760; 96372; G0257; G0378; J1815; J2270; J2405; Q0162; U0002